=== PATIENT | female | born 1995 | race Caucasian/White ===

== ENCOUNTER 2025-01-08 19:11 | Emergency (ER) | payer SELFPAY ==
[~2025-01-08] VITALS: Ht 160 cm; Wt 73.0 kg
[2025-01-08 19:51] VITALS: O2SAT 100
[2025-01-08 22:42] LABS: CLARITY URINE CLOUDY (CLEAR); COLOR URINE YELLOW (YELLOW); GLUCOSE URINE NEGATIVE (NEGATIVE); KETONES URINE NEGATIVE (NEGATIVE); LEUKOCYTE ESTERASE URINE 3+ (NEGATIVE); NITRITE URINE NEGATIVE (NEGATIVE); OCCULT BLOOD URINE 2+ (NEGATIVE); PH URINE 5.5 (4.5-8.0); PROTEIN URINE TRACE (NEGATIVE); SPECIFIC GRAVITY URINE 1.013 (1.005-1.030); UROBILINOGEN URINE 0.2 E.U./dL (0.2-1.0)
[2025-01-08] MEDS: ACETAMINOPHEN 325MG TABLET PO ONE (23:02)
[2025-01-08 23:03] LABS: RBC URINE 0-2 /hpf (0-2)
[2025-01-08 23:04] LABS: BACTERIA URINE 1+; SQUAMOUS EPITHELIAL CELL URINE 1+ /lpf (RARE/1+)
[2025-01-08 23:04] LABS: BASOPHILS % 0.8 % (0.0-2.0); EOSINOPHILS % 3.3 % (0.0-5.0); HEMATOCRIT. 35.4 % (36.0-48.0); HEMOGLOBIN. 12.3 g/dL (12.0-16.0); LYMPHOCYTES % 43.9 % (20.0-50.0); MEAN PLATELET VOLUME 9.0 fl (7.4-10.4); MONOCYTES % 6.5 % (2.0-8.0); NEUTROPHILS % 45.5 % (40.0-76.0); PLATELET 313 x1000/uL (130-400); RED BLOOD CELL COUNT 3.72 mill/uL (4.2-5.4); RED CELL DISTRIBUTION WIDTH 12.0 % (11.6-14.6)
[2025-01-08 23:16] LABS: INR 0.9
[2025-01-08 23:20] LABS: CREATININE 0.7 mg/dL (0.6-1.0); UREA NITROGEN BLOOD 11 mg/dL (9-23)
[2025-01-08 23:21] LABS: ASPARTATE AMINOTRANSFERASE 32 IU/L (<34)
[2025-01-08 23:22] LABS: BILIRUBIN DIRECT 0.1 mg/dL (<=3.0); BILIRUBIN TOTAL 0.3 mg/dL (0.1-1.0); PROTEIN TOTAL 7.0 g/dL (6.0-8.3)
[2025-01-08 23:35] LABS: HCG SCREEN NEGATIVE
[2025-01-08] MEDS ORDERED: CIPR-452 MT (23:36)
[2025-01-08] MEDS: KETOROLAC 30MG/ML VIAL IM ONE (23:58)
[2025-01-09 00:03] VITALS: BP 117/68; PULSE 74; RESP 16; TEMP 37.1; O2SAT 99
== END 2025-01-09 00:05 | disposition home or self-care (01) ==
LOC: ER 19:11
DX: N39.0 Urinary tract infection, site not specified (principal); Z90.49 Acquired absence of other specified parts of digestive tract; Z79.899 Other long term (current) drug therapy; Z98.890 Other specified postprocedural states
CPT/HCPCS: 99283; 80076; 80048; 81003; 81025; 84703; 83690; 83735; 85025; 85610; 85730; 87086; 87186; 87077; 36415; 96372; J1885

== ENCOUNTER 2025-01-11 09:17 | Emergency (ER) | payer MEDICAID ==
[~2025-01-11] VITALS: Ht 165.1 cm; Wt 77.0 kg
[~2025-01-11 09:17] MED LIST: CIPR-452 MT
[2025-01-11 09:21] VITALS: O2SAT 100
[2025-01-11] MEDS ORDERED: ACET-2708 MT (09:51)
[2025-01-11] MEDS ORDERED: CYCL5TAB3 MT (09:51)
[2025-01-11] MEDS ORDERED: IBUP-2030 MT (09:51)
[2025-01-11] MEDS: IBUPROFEN 800MG TABLET PO ONE (10:08)
[2025-01-11 10:11] VITALS: BP 118/77; PULSE 75; RESP 18; TEMP 36.8; O2SAT 100
== END 2025-01-11 10:10 | disposition home or self-care (01) ==
LOC: ER 09:17
DX: M54.2 Cervicalgia (principal); Z90.49 Acquired absence of other specified parts of digestive tract
CPT/HCPCS: 99282; 99283